=== PATIENT | male | born 1985 | race Hispanic/Latino ===

== ENCOUNTER 2023-02-23 03:44 | Emergency (ER) | payer OTHER ==
[2023-02-23 04:12] LABS: Bilirubin Negative (Negative); Blood, Urine Negative (Negative); Clarity Clear (Clear); Glucose, Urine (Dipstick) Negative (Negative); Ketone, Urine Negative (Negative); Leukocyte Negative (Negative); Nitrite Negative (Negative); Protein, Urine (Dipstick) Negative (Neg-Trace); Specific Gravity, Urine 1.025 (1.005-1.030); Urobilinogen 0.2 mg/dL (Less than 2)
[2023-02-23 04:13] LABS: CAUTI Indications for Culture Pelvic or flank pain; RBC/HPF None Seen HPF (0-3); Squamous Epithelial 0-3 HPF (0-3); WBC/HPF None Seen HPF (0-3)
[2023-02-23 04:14] LABS: Urine Culture Reflex No No
[2023-02-23] MEDS ORDERED: Lactated Ringer's 1,000 ML ONE (04:18)
[2023-02-23] MEDS ORDERED: Ondansetron PF 4 MG/2 ML Vial ONE (04:18)
[2023-02-23] MEDS ORDERED: Ketorolac Tromethamine 30 MG/ML VIAL ONE (04:18)
[2023-02-23 04:30] LABS: #Basophils 0.3 thou/uL (0.0-0.2); #Eosinphils 0.1 thou/uL (0.0-0.7); #Lymphocytes 2.2 thou/uL (1.20-3.40); #Monocytes 0.8 thou/uL (0.11-0.59); #Neutrophils 11.5 thou/uL (1.40-6.50); %Basophils 1.8 % (0.0-1.0); %Eosinophils 0.8 % (0.0-10.0); %Lymphocytes 14.7 % (21.0-51.0); %Monocytes 5.4 % (0.0-10.0); %Neutrophils 77.3 % (42.0-75.0); Hematocrit 51.1 % (42.0-52.0); Hemoglobin 17.1 g/dL (14.0-18.0); Mean Corpuscular HGB CONC 33.6 g/dL (32.0-36.0); Mean Corpuscular Hemoglobin 30.2 pg (27.0-31.0); Mean Corpuscular Volume 90.1 fl (78.0-98.0); Mean Platelet Volume 9.6 fL (7.4-10.4); Platelet Count 219 10x3/uL (130-400); RBC Distribution Width 11.8 % (11.5-14.5); Red Blood Cell (RBC) Count 5.67 mill/uL (4.70-6.10); White Blood Cell (WBC) Count 14.9 10x3/uL (4.8-10.8)
[2023-02-23 04:51] LABS: ALT (SGPT) 44 U/L (8-55); AST (SGOT) 24 U/L (5-34); Albumin 4.5 g/dL (3.5-5.0); Alkaline Phosphatase 84 U/L (40-110); Anion Gap 14 mmol/L (10-20); BUN (Urea Nitrogen) 9 mg/dL (8.9-20.6); Bilirubin, Total 0.5 mg/dL (0.2-1.2); Calc. Creatinine Clearance 0 mL/min (70-130); Calcium 9.2 mg/dL (7.8-10.44); Carbon Dioxide 23 mmol/L (22-29); Chloride 103 mmol/L (98-107); Estimated GFR 115; Glucose 144 mg/dL (70-105); Lipase 88 U/L (8-78); Potassium 3.6 mmol/L (3.5-5.1); Protein, Total 7.5 g/dL (6.0-8.3); Sodium 136 mmol/L (136-145)
[2023-02-23] MEDS ORDERED: Dicyclomine 20 MG/2 ML VIAL ONE (05:05)
[2023-02-23] MEDS ORDERED: Piperacillin/Tazobactam 4.5 GM VIAL ONE (05:05)
[2023-02-23] MEDS ORDERED: Sodium Chloride 0.9% 100 ML BAG ONE (06:06)
== END 2023-02-23 05:55 | disposition home or self-care (01) ==
LOC: MADERS 03:44
DX: N13.2 Hydronephrosis with renal and ureteral calculous obstruction (principal); K82.8 Other specified diseases of gallbladder
CPT/HCPCS: 74176; 80053; 81001; 83690; 85025; 94760; 96365; 96372; 96375; J1885; J2405; J2543; J3490; J7120

== ENCOUNTER 2023-09-04 23:17 | Emergency (ER) | payer OTHER ==
[~2023-09-04 23:17] MED LIST: Iopamidol 370 76% 100 ML VIAL ONE
[2023-09-04] MEDS ORDERED: Ketorolac Tromethamine 30 MG (1 mL) VIAL ONE (23:48)
[2023-09-04] MEDS ORDERED: Ondansetron PF 4 MG/2 ML Vial ONE (23:48)
[2023-09-04] MEDS ORDERED: Lactated Ringer's 1,000 ML ONE (23:49)
[2023-09-04 23:50] LABS: #Basophils 0.2 thou/uL (0.0-0.2); #Eosinphils 0.3 thou/uL (0.0-0.7); #Lymphocytes 1.8 thou/uL (1.20-3.40); #Monocytes 0.7 thou/uL (0.11-0.59); #Neutrophils 5.8 thou/uL (1.40-6.50); %Basophils 2.4 % (0.0-1.0); %Eosinophils 3.8 % (0.0-10.0); %Lymphocytes 20.4 % (21.0-51.0); %Monocytes 7.9 % (0.0-10.0); %Neutrophils 65.6 % (42.0-75.0); Hematocrit 51.8 % (42.0-52.0); Hemoglobin 15.8 g/dL (14.0-18.0); Mean Corpuscular HGB CONC 30.6 g/dL (32.0-36.0); Mean Corpuscular Hemoglobin 28.1 pg (27.0-31.0); Mean Corpuscular Volume 91.8 fl (78.0-98.0); Mean Platelet Volume 8.3 fL (7.4-10.4); Platelet Count 226 10x3/uL (130-400); RBC Distribution Width 13.1 % (11.5-14.5); Red Blood Cell (RBC) Count 5.64 mill/uL (4.70-6.10); White Blood Cell (WBC) Count 8.8 10x3/uL (4.8-10.8)
[2023-09-05 00:07] LABS: Troponin I Less than 0.010 ng/mL (< 0.028)
[2023-09-05 00:12] LABS: ALT (SGPT) 246 U/L (8-55); AST (SGOT) 95 U/L (5-34); Albumin 4.2 g/dL (3.5-5.0); Alkaline Phosphatase 148 U/L (40-110); Anion Gap 17 mmol/L (10-20); BUN (Urea Nitrogen) 9 mg/dL (8.9-20.6); Bilirubin, Total 6.7 mg/dL (0.2-1.2); Calc. Creatinine Clearance 0 mL/min (70-130); Calcium 9.1 mg/dL (7.8-10.44); Carbon Dioxide 20 mmol/L (22-29); Chloride 106 mmol/L (98-107); Estimated GFR 114; Globulin 2.6 g/dL (2.4-3.5); Glucose 121 mg/dL (70-105); Lipase 99 U/L (8-78); Potassium 3.9 mmol/L (3.5-5.1); Protein, Total 6.8 g/dL (6.0-8.3); Sodium 139 mmol/L (136-145)
[2023-09-05 00:38] LABS: Bilirubin Moderate (Negative); Blood, Urine Negative (Negative); Clarity Clear (Clear); Glucose, Urine (Dipstick) Negative (Negative); Ketone, Urine Negative (Negative); Leukocyte Negative (Negative); Nitrite Negative (Negative); Protein, Urine (Dipstick) Negative (Neg-Trace); Specific Gravity, Urine 1.015 (1.005-1.030); Urobilinogen 0.2 mg/dL (Less than 2)
[2023-09-05 00:39] LABS: CAUTI Indications for Culture Acute Hematuria; RBC/HPF None Seen HPF (0-3); Squamous Epithelial 0-3 HPF (0-3); WBC/HPF None Seen HPF (0-3)
[2023-09-05 00:40] LABS: Urine Culture Reflex No No
[2023-09-05] MEDS ORDERED: Piperacillin/Tazobactam 4.5 GM VIAL ONE (00:58)
[2023-09-05] MEDS ORDERED: Sodium Chloride 0.9% 100 ML ONE (00:59)
== END 2023-09-05 01:18 | disposition short-term general hospital (02) ==
LOC: MADERS 23:17
DX: K83.1 Obstruction of bile duct (principal); R74.01 Elevation of levels of liver transaminase levels
CPT/HCPCS: 74177; 80053; 81001; 83690; 84484; 85025; 93005; 94760; 96361; 96374; 96375; J1885; J2405; J2543; J7120